=== PATIENT | male | born 1980 | race Two or more races ===

== ENCOUNTER 2020-04-11 12:48 | Outpatient (REF) | payer OTHER, SELFPAY | END 2020-04-11 12:49 | disposition home or self-care (01) | LOC: HO.LAB 12:48 | PROVIDERS: PCP Internal Medicine; Visit Provider Internal Medicine | DX: Z20.828 Contact with and (suspected) exposure to other viral communicable diseases (principal) | CPT/HCPCS: C9803; U0003 ==

== ENCOUNTER 2021-08-31 14:01 | Outpatient (REF) | payer OTHER, MEDICARE, MEDICAID, SELFPAY ==
[2021-08-31 14:43] LABS: COVID-19 Test Positive (Negative)
== END 2021-08-31 14:02 | disposition home or self-care (01) ==
LOC: HO.LAB 14:01
PROVIDERS: Visit Provider Internal Medicine
DX: Z20.822 Contact with and (suspected) exposure to COVID-19 (principal)
CPT/HCPCS: 87635; C9803

== ENCOUNTER 2023-06-08 09:53 | Inpatient (IN) | payer MEDICARE, SELFPAY ==
--- NOTE | ~2023-06-08 | CT_ITS ---
EXAMINATION: CT ABDOMEN AND PELVIS WITH CONTRAST CLINICAL INFORMATION: Rule out appendicitis COMPARISON: None available. TECHNIQUE: Multidetector volumetric images were obtained from the superior aspect of the liver through the pubic symphysis following administration 85 mL of Omnipaque 350 intravenous contrast. Sagittal and coronal reformatted images were obtained on the technologist's workstation. Oral contrast: No This CT examination was performed using dose optimization techniques as appropriate, variously including the following: *Automated exposure control *Adjustment of mA and/or kV according to patient size (this includes techniques or standardized protocols for targeted exams where dose is matched to indication/reason for exam; i.e. extremities or head) *Use of iterative reconstruction technique DLP: 341 mGy-cm FINDINGS: LUNG BASES: Left lower lobe solid pulmonary micronodule, 4:55. ABDOMINAL AND PELVIC WALL: Small fat-containing umbilical hernia. LIVER AND BILIARY TREE: Unremarkable. GALLBLADDER: Unremarkable. PANCREAS: Unremarkable. SPLEEN: Unremarkable. ADRENAL GLANDS: Unremarkable. KIDNEYS AND URETERS: Unremarkable. GASTROINTESTINAL TRACT: Colonic diverticulosis without evidence of diverticulitis. Appendix is thick-walled and dilated measuring up to 1.1 cm in diameter suspicious for acute appendicitis. No extraluminal air to suggest perforation or organized fluid collection to suggest abscess. VASCULAR: Unremarkable. LYMPH NODES/PERITONEUM: No lymphadenopathy. FREE FLUID: None. BLADDER: Unremarkable. PELVIC VISCERA: Unremarkable. OSSEOUS STRUCTURES: Unremarkable. CT/CT abdomen pelvis w IV con IMPRESSION: * Appendix is thick-walled and dilated measuring up to 1.1 cm in diameter suspicious for acute appendicitis. No extraluminal air to suggest perforation or organized fluid collection to suggest abscess. * Left lower lobe solid pulmonary micronodule. Per the 2017 revised Fleischner Society guidelines, no routine follow up is recommended for solid nodules < 6mm in the middle/lower lobes. The findings and recommendations were discussed with Dr. Marian Ovalles by telephone at 06/08/2023 5:37 PM and it was ascertained that the content and urgency of the report was understood at the time of direct communication.
[2023-06-08 10:40] VITALS: BP 108/57; PULSE 62; RESP 20; TEMP 36.8; O2SAT 98; BMI 24.9
[2023-06-08 11:05] LABS: MANUAL DIFF FLAG NO
[2023-06-08 11:06] LABS: Basophils Absolute Auto 0.1 X10*3/uL (0.0-0.2); Basophils Percent Auto 0.2 % (0-2); Eosinophils Absolute Auto 0.1 X10*3/uL (0.0-0.4); Eosinophils Percent Auto 0.3 % (0-4); Hematocrit 41.2 % (42.0-52.0); Hemoglobin 14.7 g/dl (14.0-18.0); Imm Gran Abs Auto 0.09 X10*3/uL (0.00-0.03); Imm Gran Pct Auto 0.4 % (0.0-0.4); Lymphocytes Percent Auto 9.2 % (20-40); Mean Corpuscular HGB Conc 35.7 g/dl (31.0-36.0); Mean Corpuscular Hemoglobin 37.3 pg (27.0-33.0); Mean Corpuscular Volume 104.6 fL (80.0-98.0); Mean Platelet Volume 8.7 fL (9.4-12.4); Monocytes Absolute Auto 0.9 X10*3/uL (0.1-1.2); Monocytes Percent Auto 4.2 % (2-11); Neutrophils Absolute Auto 18.1 x10*3/uL (2.0-8.3); Neutrophils Percent Auto 85.7 % (45-73); Platelet Count 351 X10*3/uL (160-400); Red Blood Count 3.94 X10*6/uL (4.60-5.80); Red Cell Distribution Width 11.9 % (11.0-16.0); White Blood Count 21.2 X10*3/uL (4.8-10.8)
[2023-06-08 11:21] LABS: Alanine Aminotransferase 20 U/L (0-40); Albumin Level 4.8 g/dL (3.5-5.0); Alkaline Phosphatase 64 U/L (39-117); Anion Gap 13 (12-20); Aspartate Amino Transferase 18 U/L (5-37); Bilirubin Total 0.8 mg/dL (0.0-1.0); Blood Urea Nitrogen 9 mg/dL (9-16); Calcium 10.1 mg/dL (8.4-10.2); Carbon Dioxide 28 mmol/L (22-29); Chloride 104 mmol/L (96-108); Creatinine Clr Calc Pharmacy 104.3; Estimated Glomerular Filt Rate > 60; Glucose Random 113 mg/dL (60-115); Sodium 141 mmol/L (135-145); Total Protein 8.1 g/dL (6.5-8.0)
--- NOTE | 2023-06-08 14:16 | ED.ABDPAIN ---
HPI - Abdominal Pain General Chief Complaint: Abdominal Pain Stated Complaint: Abd pain Time Seen by Provider: 06/08/23 14:08 Source: patient Mode of arrival: ambulatory Limitations: no limitations History of Present Illness HPI narrative: Patient comes to the emergency room complaining of abdominal pain. Patient states that last night he went to sleep asymptomatic. At 03:00 today, 11 hours ago, patient woke up with periumbilical pain and nausea. Patient states that the pain keeps getting worse throughout the day. Patient denies fever chills, no prior medical history or surgical history. Related Data Allergies Allergy/AdvReac Type Severity Reaction Status Date / Time No Known Allergies Allergy Verified 06/08/23 10:40 [No Known Allergies*] Review of Systems Review of Systems Constitutional : No Weight loss, No Fever, No Chills, No Night Sweats, No Fatigue, No Malaise ENT/Mouth : No Hearing loss, No Ear Pain, No Nasal Congestion, No Sinus Pain, No Hoarseness, No sore throat, No Rhinorrhea, No Swallowing Difficulty Eyes: No Eye Pain, No Swelling, No Redness, No Foreign Body, No Discharge, No Vision Changes Cardiovascular : No Chest Pain, No SOB, No Dyspnea on Exertion, No Orthopnea, No Edema, No Palpitations Respiratory : No Cough, No Sputum, No Wheezing, No Smoke Exposure, No Dyspnea Gastrointestinal : Complaining of Nausea, No Vomiting, No Diarrhea, No Constipation, complaining of periumbilical pain, No Hematochezia, No Melena Genitourinary : no irregular bleeding, No Dysuria, No Urinary Frequency, No Hematuria, No Urinary Incontinence, No Urgency, No Flank Pain, No Urinary Flow Changes, No Hesitancy Musculoskeletal : No joint pain, No Myalgias, No Joint Swelling Skin : No Skin Lesions, No rash Neuro : No Weakness, No Numbness, No Paresthesias, No Loss of Consciousness, No Dizziness, No Headache Psych : No Anxiety/Panic, No Depression, No SI/HI/AH/VH, No Social Issues, Heme/Lymph: No Bruising, No Bleeding,No Lymphadenopathy Endocrine : No Polyuria, No Polydipsia, No Temperature Intolerance PMFSH Past Medical History Medical History (Updated 06/08/23 @ 17:51 by Marian Ovalles MD) Acute appendicitis Marijuana smoker No pertinent past medical history Social History Social History Advance Directives: No Physical Exam ED Vital Signs: Vital Signs - 24 hr 06/08/23 10:40 06/08/23 14:46 Temperature 98.2 F Pulse Rate 62 56 Respiratory Rate 20 12 Blood Pressure 108/57 L 108/51 L Pulse Oximetry 98 96 Oxygen Delivery Method Room Air Room Air BMI result Body Mass Index 24.9 Const Other: Appearance: Alert. Oriented X3. No acute distress. Eyes: Pupils equal, round and reactive to light. ENT: Pharynx normal. Neck: Normal inspection. Neck supple. No lymph nodes noted. No crepitus CVS: Normal heart rate and rhythm. Pulses normal. Normal S1 and S2 Respiratory: No respiratory distress. Breath sounds normal. No Wheezing. No rales Abdomen: Soft , tenderness to palpation in epigastric area, but more so in the periumbilical area, significant more pain at McBurney's point Skin: Skin warm and dry. Normal skin color. Normal skin turgor. Extremities: No lower extremity edema. No Lacerations. No Rash Neuro: Oriented X 3. No motor deficit. No sensory deficit. Moving all extremities. No slurred speech. CN 2 through 12 grossly intact Psych: calm, cooperative, normal affect Course Course Course Narrative: - Medical Decision Making Medical Decision Making [facility] Narrative: -I discussed the physical exam with the patient, concerning for appendicitis -my interpretation of labs: White blood cell count to, chemistry normal -patient receiving IV fluids, Zofran, Toradol -my interpretation of CT scan: Likely appendicitis spot unclear. -radiology confirmed the patient has appendicitis -I discussed the patient with Dr. Wallace from surgery -patient being admitted Differential Diagnosis Differential Diagnoses: The differential diagnosis associated with the presentation includes (Appendicitis, colitis, ureterolithiasis, renal colic) Admission/Observation Consideration of admission/observation: Escalation of care including admission/observation considered Consult Healthcare Provider Management of the patient was discussed with: [employer] Operations Manager Lab Data [facility] Lab Attestation statement: I reviewed the patient's lab results. 06/08/23 11:01 06/08/23 11:01 Labs: Lab Results 06/08/23 Range/Units 11:01 WBC 21.2 H (4.8-10.8) X10*3/uL RBC 3.94 L (4.60-5.80) X10*6/uL Hgb 14.7 (14.0-18.0) g/dl Hct 41.2 L (42.0-52.0) % MCV 104.6 H (80.0-98.0) fL MCH 37.3 H (27.0-33.0) pg MCHC 35.7 (31.0-36.0) g/dl RDW 11.9 (11.0-16.0) % Plt Count 351 (160-400) X10*3/uL MPV 8.7 L (9.4-12.4) fL Immature Gran % (Auto) 0.4 (0.0-0.4) % Neut % (Auto) 85.7 H (45-73) % Lymph % (Auto) 9.2 L (20-40) % [place] % (Auto) 4.2 (2-11) % Eos % (Auto) 0.3 (0-4) % Baso % (Auto) 0.2 (0-2) % Lymph # (Auto) 2.0 (1.2-4.9) X10*3/uL [place] # (Auto) 0.9 (0.1-1.2) X10*3/uL Eos # (Auto) 0.1 (0.0-0.4) X10*3/uL Baso # (Auto) 0.1 (0.0-0.2) X10*3/uL Abs Immat Gran (auto) 0.09 H (0.00-0.03) X10*3/uL Absolute Neuts (auto) 18.1 H (2.0-8.3) x10*3/uL Absolute Nucleated RBC 0.000 (0.0-0.012) X10*3/uL Nucleated RBC % (auto) 0.0 (0.0-0.2) /100WBC Sodium 141 (135-145) mmol/L Potassium 4.0 (3.3-5.1) mmol/L Chloride 104 (96-108) mmol/L Carbon Dioxide 28 (22-29) mmol/L Anion Gap 13 (12-20) BUN 9 (9-16) mg/dL Creatinine 0.78 (0.5-1.4) mg/dL Estim Creat Clear Calc 104.3 Estimated GFR > 60 Random Glucose 113 (60-115) mg/dL Calcium 10.1 (8.4-10.2) mg/dL Total Bilirubin 0.8 (0.0-1.0) mg/dL AST 18 (5-37) U/L ALT 20 (0-40) U/L Alkaline Phosphatase 64 (39-117) U/L Total Protein 8.1 H (6.5-8.0) g/dL Albumin 4.8 (3.5-5.0) g/dL Independent Interpretation I performed an independent interpretation of an: CT Scan Radiology Impression Discussion of test interpretation with radiology: I have reviewed the radiologist's reading. Radiologist Impression: FINDINGS: LUNG BASES: Left lower lobe solid pulmonary micronodule, 4:55. ABDOMINAL AND PELVIC WALL: Small fat-containing umbilical hernia. LIVER AND BILIARY TREE: Unremarkable. GALLBLADDER: Unremarkable. PANCREAS: Unremarkable. SPLEEN: Unremarkable. ADRENAL GLANDS: Unremarkable. KIDNEYS AND URETERS: Unremarkable. GASTROINTESTINAL TRACT: Colonic diverticulosis without evidence of diverticulitis. Appendix is thick-walled and dilated measuring up to 1.1 cm in diameter suspicious for acute appendicitis. No extraluminal air to suggest perforation or organized fluid collection to suggest abscess. VASCULAR: Unremarkable. LYMPH NODES/PERITONEUM: No lymphadenopathy. FREE FLUID: None. BLADDER: Unremarkable. PELVIC VISCERA: Unremarkable. OSSEOUS STRUCTURES: Unremarkable. CT/CT abdomen pelvis w IV con IMPRESSION: * Appendix is thick-walled and dilated measuring up to 1.1 cm in diameter suspicious for acute appendicitis. No extraluminal air to suggest perforation or organized fluid collection to suggest abscess. * Left lower lobe solid pulmonary micronodule. Per the 2017 revised Fleischner Society guidelines, no routine follow up is recommended for solid nodules < 6mm in the middle/lower lobes. Medications Administered Discontinued Medications Generic Name Dose Route Start Last Admin Trade Name Freq PRN Reason Stop Dose Admin Sodium Chloride 1,000 mls @ 999 mls/hr 06/08/23 14:13 06/08/23 14:41 Ns IVCONT 06/08/23 15:13 999 mls/hr .Q1H1M ONE Administration Iohexol 85 ml 06/08/23 16:02 06/08/23 16:03 Iohexol 350 Mg/Ml 100 Ml Infus..Btl IV 06/08/23 16:03 85 ml ONCE ONE Administration Ketorolac Tromethamine 30 mg 06/08/23 14:13 06/08/23 14:44 Ketorolac Tromethamine 30 Mg/Ml Vial IVPUSH 06/08/23 14:14 30 mg ONCE ONE Administration Ondansetron HCl 4 mg 06/08/23 14:13 06/08/23 14:44 Ondansetron Hcl 4 Mg/2 Ml Vial IVPUSH 06/08/23 14:14 4 mg ONCE ONE Administration Critical Care Time Critical Care Time Critical Care Time: Yes Total Critical Care Time: 60 Attestation: I have personally provided critical care time. Time includes review of lab data, radiology results, discussion with consultants, and monitoring for potential decompensation. Intervention performed as documented. Discharge Plan Discharge Clinical Impression: Acute appendicitis Patient Disposition: Admitted As Inpatient Additional Instructions: Please follow-up with your primary care physician tomorrow. If you have any worsening or new symptoms, please return to the emergency room or call 911
[2023-06-08] MEDS: 0.9 % Sodium Chloride 1,000 ML 999 ML IVCONT (14:41)
[2023-06-08] MEDS: Ketorolac Tromethamine 30 MG/ML VIAL IVPUSH (14:44)
[2023-06-08] MEDS: ondansetron HCL 4 MG/2 ML VIAL IVPUSH ×2 (14:44→22:00)
[2023-06-08 14:46] VITALS: BP 108/51; PULSE 56; RESP 12; O2SAT 96
[2023-06-08] MEDS: iohexoL 350 MG/ML 100 ML INFUS..BTL 85 ML IV (16:03)
--- NOTE | 2023-06-08 17:43 | PM.HPGS ---
History of Present Illness History of Present Illness Date of Service: 06/09/23 Chief complaint: Acute Appendicitis Narrative: Nelson Sandhu is a 42 year old male here in the ED for RLQ pain. He says this started about 3 AM this morning. He denies any vomitting , or diarrhea. He states that at one point while waiting in the ED, his pain was worse. However, right now he states his pain is very minimal. He deniesa any fever or chills. Review of Systems Constitutional: Constitutional: Denies chills and Denies fever(s) Cardiovascular: Cardiovascular: Denies chest pain, Denies dyspnea and Denies dyspnea on exertion Respiratory: Respiratory: Denies cough, Denies dyspnea and Denies dyspnea on exertion Gastrointestinal: Gastrointestinal: Denies hematochezia and Denies change in bowel habits Genitourinary: Genitourinary: Denies hematuria and Denies difficulty urinating Musculoskeletal: Musculoskeletal: Denies back pain and Denies limited range of motion Neurologic: Denies focal weakness and Denies convulsions Psychiatric: Psychiatric: Denies depression and Denies mood swings PMFSH Past Medical History Medical History Acute appendicitis Marijuana smoker No pertinent past medical history Surgical History Surgical History (Updated 06/09/23 @ 09:08 by Darcie Rajput RN) H/O wisdom tooth extraction Social History Social History Household Members: Spouse and Children Housing: Apartment Do you presently have visiting nurse or other home services: No Unable to assess alcohol history related to: Unknown Patient Tobacco Use Status: Never used Tobacco Smoked in Last 30 Days: No Patient Interested in Nicotine Replacement: No Patient Given Instructions on How to Stop Smoking: No Second Hand Smoke Exposure: No Use of substances other than those prescribed or required for medical reasons: Yes Substance Use Frequency: Daily Currently Displaying Signs/Symptoms of Drug Intoxication Withdrawal: No Have you been hit, kicked, punched, or otherwise hurt by someone within the past year? If so, by whom?: No Do you feel safe in your current relationship?: No Is there a partner from a previous relationship who is making you feel unsafe now?: No Are you made to feel afraid or neglected: No Are you DNR?: No Advance Directives: No Do you have thoughts of harming others: None Do you have a plan to hurt others: No Plan Recently lost weight without trying: Unsure Eating poorly because of decreased appetite: No Nutrition Risks: Poor intake 0-25% >4 days Poor oral hygiene: No service: No Meds Allergies Allergy/AdvReac Type Severity Reaction Status Date / Time No Known Allergies Allergy Verified 06/08/23 10:40 [No Known Allergies*] Active Medications: Current Medications Piperacillin Sod/Tazobactam (Sod 3.375 gm/ Sodium Chloride) 50 mls @ 100 mls/hr IV ONCE ONE Stop: 06/08/23 18:11 Home Medications Medication Instructions Recorded Confirmed Last Taken Type No Known Home Meds 06/08/23 06/08/23 Unknown History Physical Exam Vital Signs: Vital Signs: Last Vital Signs Temp 98.2 F 06/08/23 10:40 Pulse 56 06/08/23 14:46 Resp 12 06/08/23 14:46 BP 108/51 L 06/08/23 14:46 Pulse Ox 96 06/08/23 14:46 O2 Del Method Room Air 06/08/23 14:46 BMI result Body Mass Index 24.9 Const: General: comfortable and no acute distress Orientation/consciousness: patient oriented x3 Neck: Neck: Yes no lymphadenopathy Resp: Auscultation: clear to auscultation bilaterally Cardio: Rhythm: regular rhythm GI: Other: very minimal tenderness on the low RLQ Palpation (GI): Soft to palpation, Tenderness to palpation present (GI), no guarding and not rigid Neuro: General: patient oriented x3 Results Results Labs: Short CBC 06/08/23 Range/Units 11:01 WBC 21.2 H (4.8-10.8) X10*3/uL Hgb 14.7 (14.0-18.0) g/dl Hct 41.2 L (42.0-52.0) % Plt Count 351 (160-400) X10*3/uL BMP 06/08/23 11:01 Sodium 141 Potassium 4.0 Chloride 104 Carbon Dioxide 28 BUN 9 Creatinine 0.78 Calcium 10.1 Liver Function 06/08/23 Range/Units 11:01 Total Bilirubin 0.8 (0.0-1.0) mg/dL AST 18 (5-37) U/L ALT 20 (0-40) U/L Alkaline Phosphatase 64 (39-117) U/L Albumin 4.8 (3.5-5.0) g/dL Assessment and Plan (1) Acute appendicitis: Status: Acute I have reviewed his CT and discussed this with the radiologist. The appendix is distended at the distal half although there is no surrounding inflammatory changes. There is no fecalith This is suggestive of early acute appendicitis. I explained the option of lap appendectomy, poss. open. I reviewed the risks inclduing but not limited to bleeding, infections, staple line leak, as well as the benefits and alternatives. I also discussed with him option of antibiotic tx. At this time, he says his pain very minimal. He would like to avoid surgery for now. He agrees to be admitted for IV abx. I did tell him that there is always the possibility of him not responding to abx with worsening. He says we can reevaluate in the morning and he is willing to review his options. He appears very benign at this time. He is hemodynamically stable and nontoxic looking. Quality Stroke Does the patient have a stroke diagnosis?: No VTE Prior VTE?: No VTE Risk Level:: Medical - low VTE Device Contraindication: N/A - Device Ordered VTE Drug Contraindication: Treatment Not Indicated Procedures Date of Service Date of Service: 06/09/23
--- NOTE | 2023-06-08 17:58 | PHA.MEDREC ---
Pharmacy Consult ? Medication Reconciliation Pharmacy has completed the medication reconciliation. Patient reported no medications at home. Adrianna Garcia, BangD
[2023-06-08] MEDS: Morphine Sulfate 4 MG/ML CARTRIDGE 2 MG IVPUSH ×2 (18:41→22:00)
[2023-06-08] MEDS: Piperacillin Sodium/Tazobactam 3.375 GM in 0.9 % Sodium Chloride 50 ML IV (18:42)
[2023-06-08 19:08] LABS: Appearance Urine Clear; Color Urine Yellow; Glucose Urine UA Negative (Negative); Leukocyte Esterase Urine Negative (Negative); Nitrite Urine Negative (Negative); PH 5.5 (5.0-9.0); Specific Gravity - Urine 1.025 (1.005-1.025); Urine Blood Negative (Negative); Urine Ketones Trace mg/dL (Negative); Urine Protein Negative (Neg-Trace)
[2023-06-08 19:27] VITALS: BP 92/36; PULSE 53; RESP 16; TEMP 36.8; O2SAT 98
[2023-06-08] MEDS: Dextrose 5 % and 0.9 % NaCl 1,000 ML 100 ML IVCONT (19:40)
[2023-06-08] MEDS: Lactated Ringers 500 ML 999 ML IV (21:00)
[2023-06-08 21:39] VITALS: BP 101/51; PULSE 54; RESP 16; O2SAT 99
[2023-06-08 23:17] VITALS: BP 117/79; PULSE 58; RESP 16; TEMP 36.5; O2SAT 100
[2023-06-09] VITALS (10 sets, daily range): BP systolic 92–132; BP diastolic 53–77; PULSE 48–68; RESP 14–18; TEMP 36.4–37.1; O2SAT 95–100; BMI 24.6
[2023-06-09] MEDS: Morphine Sulfate 4 MG/ML CARTRIDGE 2 MG IVPUSH ×2 (01:52→06:09)
[2023-06-09] MEDS: Piperacillin Sodium/Tazobactam 3.375 GM in 0.9 % Sodium Chloride 50 ML IV ×3 (01:53→12:58)
[2023-06-09] MEDS: Dextrose 5 % and 0.9 % NaCl 1,000 ML 100 ML IVCONT (06:03)
[2023-06-09 06:27] LABS: MANUAL DIFF FLAG NO
[2023-06-09 06:44] LABS: Basophils Absolute Auto 0.1 X10*3/uL (0.0-0.2); Basophils Percent Auto 0.7 % (0-2); Eosinophils Absolute Auto 0.3 X10*3/uL (0.0-0.4); Hematocrit 34.6 % (42.0-52.0); Imm Gran Abs Auto 0.03 X10*3/uL (0.00-0.03); Imm Gran Pct Auto 0.3 % (0.0-0.4); Lymphocytes Absolute Auto 3.4 X10*3/uL (1.2-4.9); Lymphocytes Percent Auto 32.8 % (20-40); Mean Corpuscular HGB Conc 34.7 g/dl (31.0-36.0); Mean Corpuscular Hemoglobin 37.3 pg (27.0-33.0); Mean Corpuscular Volume 107.5 fL (80.0-98.0); Mean Platelet Volume 9.3 fL (9.4-12.4); Monocytes Absolute Auto 0.7 X10*3/uL (0.1-1.2); Neutrophils Absolute Auto 5.9 x10*3/uL (2.0-8.3); Neutrophils Percent Auto 56.2 % (45-73); Platelet Count 277 X10*3/uL (160-400); Red Blood Count 3.22 X10*6/uL (4.60-5.80); Red Cell Distribution Width 11.9 % (11.0-16.0); White Blood Count 10.5 X10*3/uL (4.8-10.8)
[2023-06-09 06:48] LABS: Anion Gap 8 (12-20); Blood Urea Nitrogen 9 mg/dL (9-16); Calcium 8.3 mg/dL (8.4-10.2); Carbon Dioxide 28 mmol/L (22-29); Chloride 109 mmol/L (96-108); Estimated Glomerular Filt Rate > 60; Glucose Random 92 mg/dL (60-115); Potassium 3.9 mmol/L (3.3-5.1); Sodium 141 mmol/L (135-145)
--- NOTE | 2023-06-09 07:23 | P.PNGS_ITS ---
Subjective Subjective Date of Service: 06/09/23 <Anastasiya Randall PA-C - Last Filed: 06/09/23 07:29> 06/09/23 <Corey Wallace MD - Last Filed: 06/09/23 11:30> Interval history: Continues to c/o complain of RLQ pain. Remains severe without analgesics. Wants to proceed with surgery now. <Anastasiya Randall PA-C - Last Filed: 06/09/23 07:29> Physical Exam 2 Vital Signs: Vital Signs: Last Vital Signs Temp 97.6 F 06/09/23 06:57 Pulse 55 06/09/23 06:57 Resp 16 06/09/23 06:57 BP 112/59 L 06/09/23 06:57 Pulse Ox 100 06/09/23 06:57 O2 Del Method Room Air 06/09/23 06:57 BMI result Body Mass Index 24.9 <Anastasiya Randall PA-C - Last Filed: 06/09/23 07:29> Const: General: comfortable, no acute distress and alert <Anastasiya Randall PA-C - Last Filed: 06/09/23 07:29> Orientation/consciousness: patient oriented x3 <ESPERANZA Bronson Last Filed: 06/09/23 07:29> Resp: Effort & Inspection: normal respiratory effort <ESPERANZA Bronson Last Filed: 06/09/23 07:29> GI: Inspection: No distended <ESPERANZA Bronson Last Filed: 06/09/23 07:29> Palpation (GI): Soft to palpation, Tenderness to palpation present (GI) in the RLQ; Rovsing's sign negative, no guarding and not rigid <ESPERANZA Bronson Last Filed: 06/09/23 07:29> Skin: General skin exam: no rashes or lesions noted <ESPERANZA Bronson Last Filed: 06/09/23 07:29> Neuro: General: patient oriented x3 and moves all extremities <ESPERANZA Bronson Last Filed: 06/09/23 07:29> Objective Data Active Medications Acetaminophen (Acetaminophen 325 Mg Tablet) 650 mg PO Q6H PRN PRN Reason: fever Dextrose/Sodium Chloride (D5ns) 1,000 mls @ 100 mls/hr IVCONT .Q10H [facility] Last Admin: 06/09/23 06:03 Dose: 100 mls/hr Documented By: ATIF Piperacillin Sod/Tazobactam (Sod 3.375 gm/ Sodium Chloride) 50 mls @ 100 mls/hr IV Q6H [facility] Last Infusion: 06/09/23 06:39 Dose: Infused Documented By: ATIF Morphine Sulfate (Morphine Sulfate 4 Mg/Ml Cartridge) 2 mg IVPUSH Q3H PRN; Protocol PRN Reason: Pain, Severe (Pain Scale 7-10) Last Admin: 06/09/23 06:09 Dose: 2 mg Documented By: ATIF Ondansetron HCl (Ondansetron Hcl 4 Mg/2 Ml Vial) 4 mg IVPUSH Q8H PRN PRN Reason: nausea Last Admin: 06/08/23 22:00 Dose: 4 mg Documented By: ARLIN Sodium Chloride (0.9 % Sodium Chloride Flush 3 Ml Syringe) 3 ml IVFLUSH QSHIFT [facility] Last Admin: 06/09/23 06:55 Dose: Not Given Documented By: VALERIE Non-Admin Reason: IV Running <Anastasiya Randall PA-C - Last Filed: 06/09/23 07:29> Labs CBC & Chem 7: 06/09/23 06:14 06/09/23 06:14 <Anastasiya Randall PA-C - Last Filed: 06/09/23 07:29> Labs: Laboratory Results - last 24 hr 06/08/23 06/08/23 06/09/23 11:01 18:49 06:14 MCV 104.6 H 107.5 H MCH 37.3 H 37.3 H MCHC 35.7 34.7 RDW 11.9 11.9 Plt Count 351 277 MPV 8.7 L 9.3 L Immature Gran % (Auto) 0.4 0.3 Neut % (Auto) 85.7 H 56.2 Lymph % (Auto) 9.2 L 32.8 [place] % (Auto) 4.2 7.0 Eos % (Auto) 0.3 3.0 Baso % (Auto) 0.2 0.7 Lymph # (Auto) 2.0 3.4 [place] # (Auto) 0.9 0.7 Eos # (Auto) 0.1 0.3 Baso # (Auto) 0.1 0.1 Abs Immat Gran (auto) 0.09 H 0.03 Absolute Neuts (auto) 18.1 H 5.9 Absolute Nucleated RBC 0.000 0.000 Nucleated RBC % (auto) 0.0 0.0 Anion Gap 13 8 L Estim Creat Clear Calc 104.3 110.0 Estimated GFR > 60 > 60 Random Glucose 113 92 Calcium 10.1 8.3 L D Total Bilirubin 0.8 AST 18 ALT 20 Alkaline Phosphatase 64 Total Protein 8.1 H Albumin 4.8 Urine Color Yellow Urine Appearance Clear Urine pH 5.5 Ur Specific [place] 1.025 Urine Protein Negative Urine Glucose (UA) Negative Urine Ketones Trace Urine Blood Negative Urine Nitrite Negative Ur Leukocyte Esterase Negative <ESPERANZA Bronson Last Filed: 06/09/23 07:29> Procedures Date of Service Date of Service: 06/09/23 <Anastasiya Randall PA-C - Last Filed: 06/09/23 07:29> 06/09/23 <Corey Wallace MD - Last Filed: 06/09/23 11:30> Progress Note: A&P Assessment and plan (1) Acute appendicitis: Status: Acute <ESPERANZA Bronson Last Filed: 06/09/23 07:29> Assessment and Plan: 42 year old male admitted with acute appendicitis. No significant improvement with nonoperative measures and wants to proceed with surgery. Risks, benefits, alternatives of laparoscopic possible open appendectomy were reviewed with the patient and included but not limited to bleeding, infection, numbness, pain, scarring, bowel or bladder injury or leak and the patient wishes to proceed. He was added onto the OR schedule for today. Pt NPO. <ESPERANZA Bronson Last Filed: 06/09/23 07:29> Time Spent With Patient Time: Total time managing care of this patient today ____ minutes. <ESPERANZA Bronson Last Filed: 06/09/23 07:29> Quality Stroke Does the patient have a stroke diagnosis?: No <Anastasiya Randall PA-C - Last Filed: 06/09/23 07:29> VTE Prior VTE?: No <Anastasiya Randall PA-C - Last Filed: 06/09/23 07:29> VTE Risk Level:: Medical - low <Anastasiya Randall PA-C - Last Filed: 06/09/23 07:29> VTE Device Contraindication: N/A - Device Ordered <Anastasiya Randall PA-C - Last Filed: 06/09/23 07:29> VTE Drug Contraindication: Treatment Not Indicated <Anastasiya Randall PA-C - Last Filed: 06/09/23 07:29>
--- NOTE | 2023-06-09 07:48 | P.PNGS_ITS ---
Subjective Subjective Date of Service: 06/09/23 Interval history: says he has some pain on RLQ no events overnight no fever Physical Exam 2 Vital Signs: Vital Signs: Last Vital Signs Temp 97.6 F 06/09/23 06:57 Pulse 55 06/09/23 06:57 Resp 16 06/09/23 06:57 BP 112/59 L 06/09/23 06:57 Pulse Ox 100 06/09/23 06:57 O2 Del Method Room Air 06/09/23 06:57 BMI result Body Mass Index 24.9 Const: General: comfortable and no acute distress Resp: Effort & Inspection: normal respiratory effort Cardio: Rate: regular rate GI: Other: some tenderness on RLQ Palpation (GI): Soft to palpation and not firm Objective Data Active Medications Acetaminophen (Acetaminophen 325 Mg Tablet) 650 mg PO Q6H PRN PRN Reason: fever Dextrose/Sodium Chloride (D5ns) 1,000 mls @ 100 mls/hr IVCONT .Q10H [facility] Last Admin: 06/09/23 06:03 Dose: 100 mls/hr Documented By: ATIF Piperacillin Sod/Tazobactam (Sod 3.375 gm/ Sodium Chloride) 50 mls @ 100 mls/hr IV Q6H [facility] Last Infusion: 06/09/23 06:39 Dose: Infused Documented By: ATIF Morphine Sulfate (Morphine Sulfate 4 Mg/Ml Cartridge) 2 mg IVPUSH Q3H PRN; Protocol PRN Reason: Pain, Severe (Pain Scale 7-10) Last Admin: 06/09/23 06:09 Dose: 2 mg Documented By: ATIF Ondansetron HCl (Ondansetron Hcl 4 Mg/2 Ml Vial) 4 mg IVPUSH Q8H PRN PRN Reason: nausea Last Admin: 06/08/23 22:00 Dose: 4 mg Documented By: ARLIN Sodium Chloride (0.9 % Sodium Chloride Flush 3 Ml Syringe) 3 ml IVFLUSH QSHIFT [facility] Last Admin: 06/09/23 06:55 Dose: Not Given Documented By: VALERIE Non-Admin Reason: IV Running Labs 06/09/23 06:14 06/09/23 06:14 Labs: Laboratory Results - last 24 hr 06/08/23 06/08/23 06/09/23 11:01 18:49 06:14 MCV 104.6 H 107.5 H MCH 37.3 H 37.3 H MCHC 35.7 34.7 RDW 11.9 11.9 Plt Count 351 277 MPV 8.7 L 9.3 L Immature Gran % (Auto) 0.4 0.3 Neut % (Auto) 85.7 H 56.2 Lymph % (Auto) 9.2 L 32.8 [place] % (Auto) 4.2 7.0 Eos % (Auto) 0.3 3.0 Baso % (Auto) 0.2 0.7 Lymph # (Auto) 2.0 3.4 [place] # (Auto) 0.9 0.7 Eos # (Auto) 0.1 0.3 Baso # (Auto) 0.1 0.1 Abs Immat Gran (auto) 0.09 H 0.03 Absolute Neuts (auto) 18.1 H 5.9 Absolute Nucleated RBC 0.000 0.000 Nucleated RBC % (auto) 0.0 0.0 Anion Gap 13 8 L Estim Creat Clear Calc 104.3 110.0 Estimated GFR > 60 > 60 Random Glucose 113 92 Calcium 10.1 8.3 L D Total Bilirubin 0.8 AST 18 ALT 20 Alkaline Phosphatase 64 Total Protein 8.1 H Albumin 4.8 Urine Color Yellow Urine Appearance Clear Urine pH 5.5 Ur Specific [place] 1.025 Urine Protein Negative Urine Glucose (UA) Negative Urine Ketones Trace Urine Blood Negative Urine Nitrite Negative Ur Leukocyte Esterase Negative Laboratory Results WBC 10.5 X10*3/uL (4.8-10.8) 06/09/23 06:14 RBC 3.22 X10*6/uL (4.60-5.80) L 06/09/23 06:14 Hgb 12.0 g/dl (14.0-18.0) L 06/09/23 06:14 Hct 34.6 % (42.0-52.0) L 06/09/23 06:14 MCV 107.5 fL (80.0-98.0) H 06/09/23 06:14 MCH 37.3 pg (27.0-33.0) H 06/09/23 06:14 MCHC 34.7 g/dl (31.0-36.0) 06/09/23 06:14 RDW 11.9 % (11.0-16.0) 06/09/23 06:14 Plt Count 277 X10*3/uL (160-400) 06/09/23 06:14 MPV 9.3 fL (9.4-12.4) L 06/09/23 06:14 Immature Gran % (Auto) 0.3 % (0.0-0.4) 06/09/23 06:14 Neut % (Auto) 56.2 % (45-73) 06/09/23 06:14 Lymph % (Auto) 32.8 % (20-40) 06/09/23 06:14 [place] % (Auto) 7.0 % (2-11) 06/09/23 06:14 Eos % (Auto) 3.0 % (0-4) 06/09/23 06:14 Baso % (Auto) 0.7 % (0-2) 06/09/23 06:14 Lymph # (Auto) 3.4 X10*3/uL (1.2-4.9) 06/09/23 06:14 [place] # (Auto) 0.7 X10*3/uL (0.1-1.2) 06/09/23 06:14 Eos # (Auto) 0.3 X10*3/uL (0.0-0.4) 06/09/23 06:14 Baso # (Auto) 0.1 X10*3/uL (0.0-0.2) 06/09/23 06:14 Abs Immat Gran (auto) 0.03 X10*3/uL (0.00-0.03) 06/09/23 06:14 Absolute Neuts (auto) 5.9 x10*3/uL (2.0-8.3) 06/09/23 06:14 Absolute Nucleated RBC 0.000 X10*3/uL (0.0-0.012) 06/09/23 06:14 Nucleated RBC % (auto) 0.0 /100WBC (0.0-0.2) 06/09/23 06:14 Sodium 141 mmol/L (135-145) 06/09/23 06:14 Potassium 3.9 mmol/L (3.3-5.1) 06/09/23 06:14 Chloride 109 mmol/L (96-108) H 06/09/23 06:14 Carbon Dioxide 28 mmol/L (22-29) 06/09/23 06:14 Anion Gap 8 (12-20) L 06/09/23 06:14 BUN 9 mg/dL (9-16) 06/09/23 06:14 Creatinine 0.74 mg/dL (0.5-1.4) 06/09/23 06:14 Estim Creat Clear Calc 110.0 06/09/23 06:14 Estimated GFR > 60 06/09/23 06:14 Random Glucose 92 mg/dL (60-115) 06/09/23 06:14 Calcium 8.3 mg/dL (8.4-10.2) L D 06/09/23 06:14 Total Bilirubin 0.8 mg/dL (0.0-1.0) 06/08/23 11:01 AST 18 U/L (5-37) 06/08/23 11:01 ALT 20 U/L (0-40) 06/08/23 11:01 Alkaline Phosphatase 64 U/L (39-117) 06/08/23 11:01 Total Protein 8.1 g/dL (6.5-8.0) H 06/08/23 11:01 Albumin 4.8 g/dL (3.5-5.0) 06/08/23 11:01 Urine Color Yellow 06/08/23 18:49 Urine Appearance Clear 06/08/23 18:49 Urine pH 5.5 (5.0-9.0) 06/08/23 18:49 Ur Specific [place] 1.025 (1.005-1.025) 06/08/23 18:49 Urine Protein Negative mg/dL (Neg-Trace) 06/08/23 18:49 Urine Glucose (UA) Negative mg/dL (Negative) 06/08/23 18:49 Urine Ketones Trace mg/dL (Negative) 06/08/23 18:49 Urine Blood Negative (Negative) 06/08/23 18:49 Urine Nitrite Negative (Negative) 06/08/23 18:49 Ur Leukocyte Esterase Negative (Negative) 06/08/23 18:49 Impressions Abdomen/Pelvis CT 06/08/23 16:35 IMPRESSION: * Appendix is thick-walled and dilated measuring up to 1.1 cm in diameter suspicious for acute appendicitis. No extraluminal air to suggest perforation or organized fluid collection to suggest abscess. * Left lower lobe solid pulmonary micronodule. Per the 2017 revised Fleischner Society guidelines, no routine follow up is recommended for solid nodules < 6mm in the middle/lower lobes. The findings and recommendations were discussed with Dr. Marian Ovalles by telephone at 06/08/2023 5:37 PM and it was ascertained that the content and urgency of the report was understood at the time of direct communication. Procedures Date of Service Date of Service: 06/09/23 Progress Note: A&P Assessment and plan (1) Acute appendicitis: Status: Acute Assessment and Plan: mild tenderness WBC lower he now wants to proceed with lap appendectomy I reviewed with him the technique of laparoscopic appendectomy and poss. open appendectomy I explained the risks, including but not limited to bleeding, infections, staple line leak, injury to bowel/urinary tract, blood clots, inherent risks of anesthesia, as well as the risks, benefits and alternatives he says he understands and has given consent Alejandra involved with discussion Time Spent With Patient Time: Total time managing care of this patient today ____ minutes. Quality Stroke Does the patient have a stroke diagnosis?: No VTE Prior VTE?: No VTE Risk Level:: Medical - low VTE Device Contraindication: N/A - Device Ordered VTE Drug Contraindication: Treatment Not Indicated
--- NOTE | 2023-06-09 09:06 | MHC.CM.PN ---
CM MET WITH PT AND AT BEDSIDE PT LIVES AT HOME WITH HIS AND CHILDREN HE IS INDEPENDENT WITH CARE, HAS NO SERVICES AND NO DME PT WILL COMPLETE A HCP TODAY NAMING HIS , SALVATORE, AND MOTHER, SAMIRA, HIS PRIMARY AND ALTERNATE AGENTS RESPECTIVELY HE HAS A PCP AT [facility] IN [place], HE DOES NOT KNOW THE NAME IMM DELIVERED DCP: HOME NO SERVICES VIA PRIVATE TRANSPORT
--- NOTE | 2023-06-09 09:58 | P.CONAN_ITS ---
HPI - Anesthesia Eval Consult details Narrative: for lap appendectomy PMFSH Active Problems Active Problems: All Active Problems (Updated 06/08/23 @ 17:51 by Marian Ovalles MD) Acute appendicitis (Acute) Acute appendicitis (Acute) Marijuana smoker (Acute) Past Medical History Medical History Acute appendicitis Marijuana smoker No pertinent past medical history Family History Family history of problems with anesthesia: No Surgical History Surgical History (Updated 06/09/23 @ 09:08 by Darcie Rajput RN) H/O wisdom tooth extraction History of Problems with Anesthesia: No Social History Social History Household Members: Spouse and Children Housing: Apartment Do you presently have visiting nurse or other home services: No Unable to assess alcohol history related to: Unknown Patient Tobacco Use Status: Never used Tobacco Smoked in Last 30 Days: No Patient Interested in Nicotine Replacement: No Patient Given Instructions on How to Stop Smoking: No Second Hand Smoke Exposure: No Use of substances other than those prescribed or required for medical reasons: Yes Substance Use Frequency: Daily Currently Displaying Signs/Symptoms of Drug Intoxication Withdrawal: No Have you been hit, kicked, punched, or otherwise hurt by someone within the past year? If so, by whom?: No Do you feel safe in your current relationship?: No Is there a partner from a previous relationship who is making you feel unsafe now?: No Are you made to feel afraid or neglected: No Are you DNR?: No Advance Directives: No Do you have thoughts of harming others: None Do you have a plan to hurt others: No Plan Recently lost weight without trying: Unsure Eating poorly because of decreased appetite: No Nutrition Risks: Poor intake 0-25% >4 days Poor oral hygiene: No service: No Meds Allergies Allergy/AdvReac Type Severity Reaction Status Date / Time No Known Allergies Allergy Verified 06/08/23 10:40 [No Known Allergies*] Active Medications: Current Medications Acetaminophen (Acetaminophen 325 Mg Tablet) 650 mg PO Q6H PRN PRN Reason: fever Dextrose/Sodium Chloride (D5ns) 1,000 mls @ 100 mls/hr IVCONT .Q10H [facility] Last Infusion: 06/09/23 08:12 Dose: 0 mls/hr Piperacillin Sod/Tazobactam (Sod 3.375 gm/ Sodium Chloride) 50 mls @ 100 mls/hr IV Q6H [facility] Last Infusion: 06/09/23 06:39 Dose: Infused Morphine Sulfate (Morphine Sulfate 4 Mg/Ml Cartridge) 2 mg IVPUSH Q3H PRN; Protocol PRN Reason: Pain, Severe (Pain Scale 7-10) Last Admin: 06/09/23 06:09 Dose: 2 mg Ondansetron HCl (Ondansetron Hcl 4 Mg/2 Ml Vial) 4 mg IVPUSH Q8H PRN PRN Reason: nausea Last Admin: 06/08/23 22:00 Dose: 4 mg Sodium Chloride (0.9 % Sodium Chloride Flush 3 Ml Syringe) 3 ml IVFLUSH QSHIFT [facility] Last Admin: 06/09/23 06:55 Dose: Not Given Home Medications Medication Instructions Recorded Confirmed Last Taken Type No Known Home Meds 06/08/23 06/08/23 Unknown History Exam Height,Weight and Vital Signs: Height 5 ft 4 in Weight 65 kg Last Vital Signs Temp 97.9 F 06/09/23 09:15 Pulse 48 L 06/09/23 09:15 Resp 16 06/09/23 09:15 BP 113/70 06/09/23 09:15 Pulse Ox 98 06/09/23 09:15 O2 Del Method Room Air 06/09/23 09:15 Pertinent Lab Results Pertinent Lab Results: Laboratory Tests 06/08/23 06/08/23 06/09/23 11:01 18:49 06:14 WBC 21.2 H 10.5 RBC 3.94 L 3.22 L Hgb 14.7 12.0 L Hct 41.2 L 34.6 L MCV 104.6 H 107.5 H MCH 37.3 H 37.3 H MCHC 35.7 34.7 RDW 11.9 11.9 Plt Count 351 277 MPV 8.7 L 9.3 L Immature Gran % (Auto) 0.4 0.3 Neut % (Auto) 85.7 H 56.2 Lymph % (Auto) 9.2 L 32.8 [place] % (Auto) 4.2 7.0 Eos % (Auto) 0.3 3.0 Baso % (Auto) 0.2 0.7 Lymph # (Auto) 2.0 3.4 [place] # (Auto) 0.9 0.7 Eos # (Auto) 0.1 0.3 Baso # (Auto) 0.1 0.1 Abs Immat Gran (auto) 0.09 H 0.03 Absolute Neuts (auto) 18.1 H 5.9 Absolute Nucleated RBC 0.000 0.000 Nucleated RBC % (auto) 0.0 0.0 Sodium 141 141 Potassium 4.0 3.9 Chloride 104 109 H Carbon Dioxide 28 28 Anion Gap 13 8 L BUN 9 9 Creatinine 0.78 0.74 Estim Creat Clear Calc 104.3 110.0 Estimated GFR > 60 > 60 Random Glucose 113 92 Calcium 10.1 8.3 L D Total Bilirubin 0.8 AST 18 ALT 20 Alkaline Phosphatase 64 Total Protein 8.1 H Albumin 4.8 Urine Color Yellow Urine Appearance Clear Urine pH 5.5 Ur Specific [place] 1.025 Urine Protein Negative Urine Glucose (UA) Negative Urine Ketones Trace Urine Blood Negative Urine Nitrite Negative Ur Leukocyte Esterase Negative Airway Mallampati Class: II TM Dist: >3cm Neck ROM: Full Loose/Missing/Broken Teeth: No Heart: ok Lungs: ok Assessment and Plan Assessment Anesthesia Assessment: Anesthesia Plan Discussed and Chart Reviewed Final Anesthetic Review Family History of Problems with Anesthesia: No History of Problems with Anesthesia: No NPO: Yes ASA Class: II Final Preanesthetic Review: No Changes in Pt Med Stat, Meds/Allgs Chart Reviewed, Consent Obtained/Reviewed and Anes Risks/Benef Reviewed Patient Risk: Low Procedure Risk: Low Anesthetic Plan Anesthetic Plan: GA and Agree w/ Assess. and Plan Disposition: Standard PACU
--- NOTE | 2023-06-09 11:25 | P.OP_ITS ---
Operative Note Operative Note Date of Service: 06/09/23 Narrative: Preop diagnosis: Acute appendicitis Postop diagnosis: Acute appendicitis, with an inflamed, edematous appendix, at the distal 2/3 Procedure: Laparoscopic appendectomy Surgeon: Corey Wallace MD The patient is a 42-year-old male, admitted because of right lower quadrant pain. He initially had wanted to proceed with nonoperative treatment with IV antibiotics. However, he continued to have pain overnight in decided to proceed with laparoscopic appendectomy this morning. He understood the technique of the planned procedure as well as the risks, benefits, and alternatives. He was brought to the operating room. Was placed supine under general anesthesia via endotracheal tube. A Parrish catheter was inserted. The abdomen was prepped and draped in the usual sterile fashion. A surgical time-out was do ne. The patient was receiving IV Zosyn as scheduled I made a short infraumbilical incision using a blade 15. This was carried down through the full-thickness of the skin and thick subcutaneous fat down to the fascia. The fascia was incised. The peritoneum was entered. Through this incision a Mary port was introduced. Pneumoperitoneum was introduced to a pressure of 15 mm Hg. We then used a 10 mm 0 degree scope. With laparoscopic visualization, I placed a 10 mm port in the left lower quadrant through a small stab incision. A another 5 mm port introduced through a small incision in the suprapubic margin. Graspers were applied through these working ports. The rest of the bowel loops reflected away from the right lower quadrant. The cecum was immediately seen. By following this were able to visualize the appendix. The appendix appeared inflamed, edematous and thickened at the distal 2/3. The base was viable and noninflamed. I was able to apply a grasper gently on the mid part of the appendix to put this on stretch. By doing so was able to visualize the base. I proceeded to do careful dissection of the base with the LigaSure to divide adherent fiber areolar tissue as well as mesentery. We were able to create a mesenteric window. We proceeded to continue to define the base until was able to clearly see this. The base of the appendix appeared viable and non gangrenous. I then positioned a powered 30 mm endo SHANNA stapler across the base. This was fired to transect the appendix. I divided the attached mesentery using serial division with the LigaSure. The appendix was therefore completely removed. This was retrieved through an endobag through the umbilical incision. I reinserted all ports and re-insufflated. I examined all 4 quadrants. There was no other pathology seen. There were no signs of any bowel injury. The staple line appeared intact. There was no bleeding. I brought the omentum down to the right lower quadrant to overlie the cecum. I therefore desufflated through the port sites. I then removed all ports under vision with the laparoscope. The umbilical port was removed last. The fascia of the umbilical incision was closed with a [id number] Polysorb 3-0 stitch. Skin closure was achieved on all incisions using Polysorb 4-0 subcuticular sutures. All incisions were infiltrated with Marcaine 0.5% for postop analgesia. Dressings were applied. The procedure was completed The patient tolerated the procedure well. There were no immediate complications. Initial and final counts of sponges and instruments were correct. Estimated blood loss was less than 25 cc The patient was extubated without difficulty and transferred to the recovery room with stable vital signs. The Parrish catheter was removed.
--- NOTE | 2023-06-09 14:04 | PC.NURSE ---
Pt states he is feeling well, wants to be d/c today home.
--- NOTE | 2023-06-09 15:36 | PM.EVENT ---
Event Note Date of Service: 06/13/23 Event Note: Seen postop - underwent uneventful laparoscopic appendectomy earlier He says he feels well Looks comfortable Abdomen soft Dressings dry Stable vital signs Doing well postop He says he feels ready to be discharged later Instructions given to the patient Time Spent With Patient Time: Total time managing care of this patient today ____ minutes.
--- NOTE | 2023-06-09 16:13 | MHC.CM.PN ---
Patient medically cleared for dc home self care. to transport.
--- NOTE | 2023-06-09 16:42 | PC.NURSE ---
Pt Voided, states he is ready for d/c home, to transport.
--- NOTE | 2023-06-14 14:54 | P.DS_ITS ---
DS: Providers Provider Date of Service: 06/09/23 Date of admission: 06/08/23 17:51 Primary care physician: Unknown Physician DS: Diagnosis Discharge Diagnosis (1) Acute appendicitis: Status: Acute DS: Summary Hospital Course Hospital Course: 42-year-old male admitted via the emergency room on the evening of June 08, 2023 because of right-sided abdominal pain. He would CT scans showed a dilated appendix suggestive of acute appendicitis. He had WBC of 21. I explained to him technique of appendectomy as well as the risks, benefits, and alternatives. However, he was hesitant and stated that he wanted to avoid surgery that time. I did tell him to the hospital and place him on IV Zosyn. He however decided to proceed with surgery during morning so we brought him to the operating room. He underwent uneventful laparoscopic appendectomy on 06/09/2023. He tolerated procedure well. His appendix was inflamed and edematous. He was started on regular diet postop. Continued to do well and was discharged later that day. He was afebrile and had good oral intake and had stable vital signs prior to discharge. Time Attestation Discharge coordination time: Less than 30 minutes Quality: Safe Use of Opioids Does Pt have an Active Cancer Diagnosis on the Problem List?: No Quality: Stroke Does the patient have a stroke diagnosis?: No Physical Exam Vital Signs: Vital Signs: Last Vital Signs Temp 97.8 F 06/09/23 15:10 Pulse 58 06/09/23 15:10 Resp 18 06/09/23 15:10 BP 120/64 06/09/23 15:10 Pulse Ox 99 06/09/23 15:10 O2 Del Method Room Air 06/09/23 15:10 BMI result Body Mass Index 24.6 Const: General: comfortable and no acute distress Orientation/consciousness: patient oriented x3 Neck: Neck: Yes no lymphadenopathy Resp: Auscultation: clear to auscultation bilaterally Cardio: Rhythm: regular rhythm GI: Other: All incisions clean and dry Palpation (GI): Soft to palpation, nontender and no guarding Neuro: General: patient oriented x3 DS: Data Data Completed and Pending Completed studies during hospitalization [Text1]: Pending at discharge 06/09/23 12:08 Surgical [PTH] Routine Procedures Laparoscopic appendectomy Pending studies at discharge: Pending at discharge 06/09/23 11:27 Surgical [PTH] Routine Labs on day of discharge: Laboratory Results WBC 10.5 X10*3/uL (4.8-10.8) 06/09/23 06:14 RBC 3.22 X10*6/uL (4.60-5.80) L 06/09/23 06:14 Hgb 12.0 g/dl (14.0-18.0) L 06/09/23 06:14 Hct 34.6 % (42.0-52.0) L 06/09/23 06:14 MCV 107.5 fL (80.0-98.0) H 06/09/23 06:14 MCH 37.3 pg (27.0-33.0) H 06/09/23 06:14 MCHC 34.7 g/dl (31.0-36.0) 06/09/23 06:14 RDW 11.9 % (11.0-16.0) 06/09/23 06:14 Plt Count 277 X10*3/uL (160-400) 06/09/23 06:14 MPV 9.3 fL (9.4-12.4) L 06/09/23 06:14 Immature Gran % (Auto) 0.3 % (0.0-0.4) 06/09/23 06:14 Neut % (Auto) 56.2 % (45-73) 06/09/23 06:14 Lymph % (Auto) 32.8 % (20-40) 06/09/23 06:14 [place] % (Auto) 7.0 % (2-11) 06/09/23 06:14 Eos % (Auto) 3.0 % (0-4) 06/09/23 06:14 Baso % (Auto) 0.7 % (0-2) 06/09/23 06:14 Lymph # (Auto) 3.4 X10*3/uL (1.2-4.9) 06/09/23 06:14 [place] # (Auto) 0.7 X10*3/uL (0.1-1.2) 06/09/23 06:14 Eos # (Auto) 0.3 X10*3/uL (0.0-0.4) 06/09/23 06:14 Baso # (Auto) 0.1 X10*3/uL (0.0-0.2) 06/09/23 06:14 Abs Immat Gran (auto) 0.03 X10*3/uL (0.00-0.03) 06/09/23 06:14 Absolute Neuts (auto) 5.9 x10*3/uL (2.0-8.3) 06/09/23 06:14 Absolute Nucleated RBC 0.000 X10*3/uL (0.0-0.012) 06/09/23 06:14 Nucleated RBC % (auto) 0.0 /100WBC (0.0-0.2) 06/09/23 06:14 Sodium 141 mmol/L (135-145) 06/09/23 06:14 Potassium 3.9 mmol/L (3.3-5.1) 06/09/23 06:14 Chloride 109 mmol/L (96-108) H 06/09/23 06:14 Carbon Dioxide 28 mmol/L (22-29) 06/09/23 06:14 Anion Gap 8 (12-20) L 06/09/23 06:14 BUN 9 mg/dL (9-16) 06/09/23 06:14 Creatinine 0.74 mg/dL (0.5-1.4) 06/09/23 06:14 Estim Creat Clear Calc 110.0 06/09/23 06:14 Estimated GFR > 60 06/09/23 06:14 Random Glucose 92 mg/dL (60-115) 06/09/23 06:14 Calcium 8.3 mg/dL (8.4-10.2) L D 06/09/23 06:14 Total Bilirubin 0.8 mg/dL (0.0-1.0) 06/08/23 11:01 AST 18 U/L (5-37) 06/08/23 11:01 ALT 20 U/L (0-40) 06/08/23 11:01 Alkaline Phosphatase 64 U/L (39-117) 06/08/23 11:01 Total Protein 8.1 g/dL (6.5-8.0) H 06/08/23 11:01 Albumin 4.8 g/dL (3.5-5.0) 06/08/23 11:01 Urine Color Yellow 06/08/23 18:49 Urine Appearance Clear 06/08/23 18:49 Urine pH 5.5 (5.0-9.0) 06/08/23 18:49 Ur Specific [place] 1.025 (1.005-1.025) 06/08/23 18:49 Urine Protein Negative mg/dL (Neg-Trace) 06/08/23 18:49 Urine Glucose (UA) Negative mg/dL (Negative) 06/08/23 18:49 Urine Ketones Trace mg/dL (Negative) 06/08/23 18:49 Urine Blood Negative (Negative) 06/08/23 18:49 Urine Nitrite Negative (Negative) 06/08/23 18:49 Ur Leukocyte Esterase Negative (Negative) 06/08/23 18:49 Impressions Abdomen/Pelvis CT 06/08/23 16:35 IMPRESSION: * Appendix is thick-walled and dilated measuring up to 1.1 cm in diameter suspicious for acute appendicitis. No extraluminal air to suggest perforation or organized fluid collection to suggest abscess. * Left lower lobe solid pulmonary micronodule. Per the 2017 revised Fleischner Society guidelines, no routine follow up is recommended for solid nodules < 6mm in the middle/lower lobes. The findings and recommendations were discussed with Dr. Marian Ovalles by telephone at 06/08/2023 5:37 PM and it was ascertained that the content and urgency of the report was understood at the time of direct communication. Discharge Plan Discharge Anticipated Discharge Date/Time: 06/10/23 09:40 Patient Disposition: Home, Self-Care Discharge Diagnosis: acute appendicitis Referrals: Corey Wallace MD [Physician] - 2 Weeks Physician,Unknown J [Primary Care Provider] - 1 Week Discharge Medications: New oxycodone-acetaminophen [Percocet] 5-325 mg tablet 1 tab PO Q4-6H PRN (Reason: pain) Qty: 25 0RF Rx Instructions: Partial Fill upon patient request. ibuprofen 600 mg tablet 600 mg PO Q6H PRN (Reason: pain) Qty: 30 0RF Discharge Orders: Discharge Order (Routine); Ordered 06/09/23 Ordered By: Corey Wallace Diet: Advance to usual diet Activity on Discharge: No heavy lifting Stand Alone Forms: Patient Portal Discharge page Activity Restrictions/Additional Instructions: If the incision area is tender, you may apply an ice pack for short intervals (No more than 20 minutes on, followed by at least 20 minutes off). Do not apply heat. Do not use creams, lotions, or topical antibiotics unless instructed to do so by your surgeon. These can cause infection or allergic reaction. No lifting more than 20 lbs Okay to shower starting Jun 11, 2023 Okay to change dressings with gauze or Band-Aid on Jun 11, 2023 No strenuous activities Call the office for follow-up in 2 weeks - with Dr. Wallace Call Your Doctor If: -Your temperature exceeds 101.5? F -You experience excessive pain or swelling -You have an unexpected reaction to medication -You have excessive bleeding -You experience continued vomiting/nausea -Your incision begins to separate -Your incision shows signs of infection such as increased redness, swelling, excessive pain, drainage (light blood or clear fluid is normal) or heat Care Plan Goals: pain management Health Concerns: pain control Plan of Treatment: oral pain meds ffup in office Assessment: doing very well Patient Instructions: Laparoscopic Appendectomy (DC) Discharge Date/Time: 06/09/23 16:55
== END 2023-06-09 16:55 | disposition home or self-care (01) | DRG 399 ==
LOC: HO.ED 17:51 → HO.EDOVER 18:15 → HO.S3 22:12
PROVIDERS: Admitting Provider Surgery; Emergency Provider Emergency Medicine; Visit Provider Surgery
PROC: 0DTJ4ZZ Resection of Appendix, Percutaneous Endoscopic Approach (ICD-10-PCS; CPT 44970; principal; 2023-06-09 10:00)
DX: K35.80 Unspecified acute appendicitis (principal)
CPT/HCPCS: 44970; 36415; 74177; 80048; 80053; 81003; 85025; 88304; 99285; 99499; J1170; J1885; J2270; J2405; J2543; J2704; J2795; J3010; J7120; Q9967

== ENCOUNTER → 2023-06-08 17:51 | Outpatient (BNV) | payer MEDICARE, SELFPAY | PROVIDERS: Admitting Provider Surgery; Emergency Provider Emergency Medicine; Visit Provider Surgery | DX: K35.80 Unspecified acute appendicitis (principal) | CPT/HCPCS: 44970; 99024; 99222 ==

== ENCOUNTER 2023-09-30 09:57 | Emergency (ER) | payer OTHER, MEDICARE, SELFPAY ==
[2023-09-30 10:02] VITALS: BP 125/78; PULSE 68; RESP 18; TEMP 36.7; O2SAT 100; BMI 24.2
[2023-09-30] MEDS: Docusate Sodium 100 MG/10 ML LIQUID PO (10:48)
--- NOTE | 2023-09-30 11:32 | ED.GENADULT ---
HPI - General Adult General Chief complaint: General Medical Stated complaint: ears clog Time Seen by Provider: 09/30/23 10:11 Source: patient, family and RN notes reviewed Mode of arrival: ambulatory Limitations: no limitations History of Present Illness ED Provider: Carlie Garcia PA-C [facility] narrative: This is a 42-year-old male who presents emergency department complaints of bilateral ear blockage x 3 weeks. Patient states that he noticed his left ear was blocked several weeks ago and now is having right ear blockage sensation. He does have intermittent pain in his left ear. Endorsing decreased hearing. No drainage. No fevers or chills. No history of similar symptoms in the past. No other complaints or concerns at this time. MD complaint: Bilateral ear blockage Onset (ago): week(s) Radiation: non-radiation Severity: moderate Quality: aching Relieving factors: none Exacerbating factors: none Associated symptoms: denies other symptoms Treatments prior to arrival: none Related Data Previous Rx's ?Medication ?Instructions ?Recorded ibuprofen 600 mg tablet 600 mg PO Q6H PRN pain #30 tabs 06/09/23 oxycodone-acetaminophen 5 mg-325 1 tab PO Q4-6H PRN pain #25 tabs 06/09/23 mg tablet (Percocet) carbamide peroxide 6.5 % ear drops 5 drp otic (ear) right Q12H 4 days 09/30/23 (Debrox) #15 mL Allergies Allergy/AdvReac Type Severity Reaction Status Date / Time No Known Allergies Allergy Verified 09/30/23 10:04 [No Known Allergies*] Review of Systems Review of Systems: Yes all other systems are reviewed and are negative Constitutional: Constitutional: Reports as per [facility] Past Medical History Medical History (Updated 09/30/23 @ 12:15 by MEDHAT Darnell) Acute appendicitis Marijuana smoker No pertinent past medical history Surgical History (Updated 06/09/23 @ 09:08 by Darcie Rajput RN) H/O wisdom tooth extraction Social History Social History Household Members: Spouse and Children Housing: Apartment Do you presently have visiting nurse or other home services: No Unable to assess alcohol history related to: Unknown Patient Tobacco Use Status: Never used Tobacco Smoked in Last 30 Days: No Second Hand Smoke Exposure: No Use of substances other than those prescribed or required for medical reasons: No Advance Directives: No Advance Directives Information Provided: No Do you have a plan to hurt others: No Plan service: No Physical Exam ED Vital Signs: Vital Signs - 24 hr 09/30/23 10:02 09/30/23 11:38 Temperature 98.0 F 97.5 F Pulse Rate 68 55 Respiratory Rate 18 16 Blood Pressure 125/78 118/63 Pulse Oximetry 100 100 Oxygen Delivery Method Room Air Room Air BMI result Body Mass Index 24.2 Const General: cooperative, comfortable and no acute distress Orientation/consciousness: patient oriented x3 Limitations: no limitations HENMT Other: Bilateral ear cerumen impaction noted, no canal erythema. Unable to visualize TM due to impactions bilaterally Head: Yes normal to inspection, Yes normocephalic and Yes atraumatic Ears: hearing grossly normal bilaterally General nose exam: Normal external nose present Face and sinus: Yes normal facial exam Mouth: Normal oral and palatal mucosa present, oropharynx normal and moist mucous membranes Throat: Yes posterior oropharynx normal Eyes General: appearance normal, both eyes and all related structures Eyelids: Yes eyelids normal Conjunctivae: conjunctivae normal Sclerae: sclerae normal Pupils: Equal, round and reactive pupils present EOM: EOMs intact bilaterally Neck Neck: Yes normal visual inspection, Yes full ROM and Yes no lymphadenopathy Lymphatic: no lymphadenopathy noted Chest Chest palpation & inspection: normal inspection of the chest Resp Effort & Inspection: normal respiratory effort and able to speak in complete sentences Auscultation: clear to auscultation bilaterally, no crackles, no rales, no rhonchi and no wheezes Cardio Rate: regular rate Rhythm: regular rhythm Heart sounds: S1 normal heart sound present and S2 normal heart sound present GI Inspection: Yes normal to inspection Skin General skin exam: no rashes or lesions noted Trauma: no lacerations or abrasions Wounds: no wounds Neuro General: patient oriented x3 and moves all extremities Cranial nerves: Yes Equal, round and reactive pupils present Extrem General: Yes normal to inspection Right upper extremity: normal to inspection Left upper extremity: normal to inspection Right lower extremity: normal to inspection Left lower extremity: normal to inspection Course Reevaluation(s) Reevaluation #1: Bilateral ear irrigation performed, moderate amount of cerumen extracted from right ear with irrigation. Left ear, some cerumen remains. Patient tolerated procedure well, see procedure note detail. Given return precautions. Also prescribe Debrox drops to allow remaining cerumen out of left ear. Given return precautions. He understands and agrees with plan. Stable for discharge Time: 12:17 Medications Administered Discontinued Medications Generic Name Dose Route Start Last Admin Trade Name Viry PRN Reason Stop Dose Admin Docusate Sodium 100 mg 09/30/23 10:39 09/30/23 10:48 Docusate Sodium 100 Mg/10 Ml Liquid PO 09/30/23 10:40 100 mg ONCE ONE Administration Procedures Ear Wax Removal Both Ears: Cerumenolytic Used: Colace Results: Re-examined: cerumen removed completely (In right ear) and some cerumen remains (left ear) TM Examination: TM(s) intact, normal appearance Ear Canal Exam: atraumatic Patient Tolerated Procedure: no complications Complications: no problems Technique: ear canal irrigated Medical Decision Making Medical Decision Making MDM Narrative: This is a 42-year-old male who presents emergency department with complaints of bilateral ear blockage times 3-4 weeks. On arrival, vital signs within normal limits. Physical exam findings consistent with cerumen impaction noted. Ears soaked with docusate for 20 minutes, irrigation performed. See procedure note. Plan: Irrigation, re-evaluation Differential Diagnosis Differential Diagnoses: The differential diagnosis associated with the presentation includes Cerumen impaction, otitis media, otitis externa, foreign body, mastoiditis-unlikely Discharge Plan Discharge Clinical Impression: Bilateral impacted cerumen Patient Disposition: Home, Self-Care Instructions: Ear Foreign Body (ED), How to Use Ear Drops (ED) Additional Instructions: You were seen in the emergency department due to cerumen impaction. We were able to flush your ears and were able to get some cerumen out of both of your ears. Please avoid using Q-tips as this often times pushes the ear wax further into your ear canal. Please use Debrox ear drops in your left ear for the next 3-4 days. While in the shower please allow the warm water to drain into your ear and drained out, do this multiple times. The cerumen will likely fall out of your ear over the next several days. If you develop any new or worsening symptoms including but not limited to decreased hearing, fevers, chills, ear pain, please return for re-evaluation. Follow-up with your primary care physician regarding this visit. Prescriptions: New Debrox 6.5 % drops 5 drp otic (ear) right Q12H 4 Days Qty: 15 0RF No Action oxycodone-acetaminophen [Percocet] 5-325 mg tablet 1 tab PO Q4-6H PRN (Reason: pain) Qty: 25 0RF Rx Instructions: Partial Fill upon patient request. ibuprofen 600 mg tablet 600 mg PO Q6H PRN (Reason: pain) Qty: 30 0RF Print Language: Faroese
[2023-09-30 11:38] VITALS: BP 118/63; PULSE 55; RESP 16; TEMP 36.4; O2SAT 100
--- NOTE | 2023-09-30 11:39 | PC.NURSE ---
Colace soaking in right ear, left ear completed. Pt denies pain
[2023-09-30 12:23] VITALS: BP 118/63; PULSE 55; RESP 16; TEMP 36.4; O2SAT 100
== END 2023-09-30 12:24 | disposition home or self-care (01) ==
PROVIDERS: Emergency Provider Emergency Medicine
DX: H61.23 Impacted cerumen, bilateral (principal)
CPT/HCPCS: 69209; 99283; 99284